=== PATIENT | female | born 1985 | race Caucasian/White ===

== ENCOUNTER 2017-05-09 11:33 | Emergency (ER) | payer OTHER ==
[~2017-05-09] VITALS: Ht 167.6 cm; Wt 172.7 kg
[2017-05-09 11:35] VITALS: BP 148/85; PULSE 80; RESP 28; O2SAT 96
[2017-05-09] MEDS ORDERED: oxyCODONE-Acetamin 5-325 mg Tablet PO ONE (11:50)
--- NOTE | 2017-05-09 13:14 | ED.REPORT ---
HPI-Back Pain Under 40 Date of Service May 09, 2017 ED Provider: Luke Hernández PA-C Yadi is an otherwise healthy 31-year-old female presented with a chief complaint of low back pain. Patient has a history of low back pain associated with left leg sciatica. Patient states approximately 3 days ago she woke up with severe lower back pain which made it difficult for her to get out of bed. She reports the pain has been worsening since then. Associated with shooting pain in her left leg. Denies numbness, tingling, weakness in lower extremity. Denies fever, DM, HIV, organ transplant, immunosuppression, recent surgery, recent infection, history of back surgery, surgical implants and IV drug use. Denies bowel/bladder dysfunction and saddle anesthesia. Denies urinary symptoms such as hematuria, dysuria. Denies history of cancer or trauma. Typically her back pain is treated with tramadol and Flexeril. Nursing Notes Stated Complaint: SCIATICA/ BACK PAIN Chief Complaint: Back Pain or Injury Nursing Notes Reviewed: Yes Allergies: Coded Allergies: No Known Allergies (Unverified , 05/09/17) Scheduled Prednisone (PredniSONE) 20 Mg Tablet 40 MG PO DAILY Scheduled PRN Cyclobenzaprine (Cyclobenzaprine) 5 Mg Tablet 5-10 MG PO TID PRN PRN Spasm General Time Seen by MD: 11:42 Chief Complaint Lumbar pain Sudden in Onset?: No Past Medical History Past Medical History Denies Review of Systems Review of Systems Note: Negative unless stated otherwise in history of present illness Physical Exam General: Well appearing, well developed, morbidly obese, tearful and in moderate distress. Head: Atraumatic, normocephalic. Eyes: No scleral icterus or injection. No discharge. Vision grossly intact. ENT: Voice clear, hearing grossly intact. Respiratory: Regular rate and rhythm. Breath sounds present, clear to auscultation and equal bilaterally. No respiratory distress. No increased work of breathing, speaks in complete sentences. Cardiovascular: Regular rate and rhythm, without murmur, gallop or rub. No pedal edema. Gastrointestinal: Abdomen flat and non-tender without guarding or rebound. Bowel sounds normoactive. Skin: Warm and dry. Neurological: Normal gait. Hip flexion, knee extension, ankle dorsiflexion and plantarflexion strength 5/5 B/L. Patellar and Achilles reflexes present and equal B/L. Sensation to sharp touch intact at medial leg, dorsal foot and lateral foot B/L. negative straight leg raise, negative cross straight leg raise. Psychological: Alert and oriented. Speech appropriate, linear and logical. Behavior appropriate. Initial Vital Signs Vital Signs (First) Date Time Temp Pulse Resp B/P Pulse Ox O2 Delivery O2 Flow Rate FiO2 05/09/17 11:35 36.8 80 28 148/85 96 Room Air Elevated blood pressure, tachypnea Re-Eval/Medical Decision Med Decision/Clinical Course Morbidly obese 31-year-old female with a history low back pain. Emergency department chief complaint low back pain worsening over the last 4 days, first noticed upon rising from bed. Denies red flag history. Disposition the patient is quite distressed and tearful. After treatment with Percocet, ketorolac, and ultimately cyclobenzaprine she is improved enough to tolerate the physical examination which is benign. Vitals are significant for elevated blood pressure and tachypnea which has resolved after pain treatment. Back pain is without red flag signs or symptoms for acute disc herniation, cauda equina, infection, hematoma, trauma, pyelonephritis, nephrolithiasis, AAA , cancer. I believe this is musculoskeletal back pain. Provided with a refill of the patient cyclobenzaprine, advised [id number] analgesia. Provided a dose of prednisone and additional doses for the next 4 days. Advised regarding primary care follow-up, provided emergency return precautions. Patient verbalized understanding of, and consent to, the plan. Discharge & Departure Impression: Primary Impression: Low back pain Chronicity: acute Back pain laterality: midline Sciatica presence: without sciatica Qualified Code: M54.5 - Low back pain Additional Impression: Elevated blood pressure reading Disposition: Home All VS Reviewed: Yes Condition: Stable Additional Instructions: Evaluation in the emergency department for lower back pain. History and physical are reassuring for emergent neurological condition such as epidural abscess or cauda equina syndrome. History does not suggest that this is likely to be a spinal fracture. Your neurological examination is normal, indicating there is no damage to the nerves in your back. I see no indication to perform imaging tests at this time. Treatment is largely symptomatic. Rest is important, especially for the next couple of days, but avoid total bed rest. Reasonable activity as tolerated is the best. The pain is best treated with 500 mg and proximal and (Aleve) every 12 hours, or 1000 mg of acetaminophen (Tylenol) every 6 hours. These drugs can be taken at the same time for more severe pain. You have been given one dose of steroids here in the emergency department. I will write you a prescription for additional doses to be taken over the next 4 days, starting tomorrow. We'll also write a prescription for a small amount of cyclobenzaprine, a muscle relaxant. Please do not drive or drink alcohol in 4 hours of taking this medication Follow-up with your primary care provider in the next week or two to be sure your recovery is progressing as expected. Return the emergency department for new or worsening symptoms such as loss of bowel/bladder control, numbness between your legs, new weakness/numbness or high fever. I also note that your blood pressure was elevated during your visit to the emergency department. Please discuss this with your primary care provider. Referrals: Shannon Feliz (PCP) EDSupervising Provider for APC: Jessica Taylor MD copies to: Shannon Feliz Seth PA-C May 09, 2017 13:14
[2017-05-09] MEDS ORDERED: predniSONE 20 mg Tablet PO ONE (13:55)
[2017-05-09] MEDS ORDERED: PRE20 PO (14:01)
[2017-05-09] MEDS ORDERED: CYCL5TAB PO (14:01)
[2017-05-09 14:25] VITALS: BP 132/82; PULSE 65; RESP 16; O2SAT 100
== END 2017-05-09 14:25 | disposition home or self-care (01) ==
LOC: SED 11:33
DX: M54.5 Low back pain (principal); R03.0 Elevated blood-pressure reading, without diagnosis of hypertension
CPT/HCPCS: 96372; 99284; J1885